=== PATIENT | male | born 1970 | race African-American/Black ===

== ENCOUNTER 2019-02-18 11:30 | Inpatient (IN) | payer MEDICAID, SELFPAY ==
[~2019-02-18] VITALS: Ht 182.9 cm; Wt 97.1 kg
[2019-02-18 12:59] LABS: BILIRUBIN,URINE NEGATIVE (NEG); CLARITY,URINE CLEAR; COLOR,URINE YELLOW; NITRITE,URINE NEGATIVE (NEG); PROTEIN,URINE NEGATIVE (NEG-TRACE); UROBILINOGEN,URINE 0.2 mg/dL (0.2 mg/dL)
[2019-02-18 13:09] LABS: BACTERIA,URINE FEW /HPF (0-FEW); RBC,URINE 0 /HPF (0-2); SQUAMOUS EPITHELIAL CELL,UR FEW /LPF
[2019-02-18] MEDS ORDERED: IPRATRPIUM/ALBUTEROL 0.5/2.5MG 3 ML NEBU. NEB ONE (13:15)
[2019-02-18] MEDS ORDERED: predniSONE 10 MG TABLET PO ONE (13:15)
[2019-02-18 13:34] LABS: BASO % 1 % (0-3); EOS # 0.1 x10^3/uL (0.0-0.7); EOS % 1 % (0-3); HEMATOCRIT 41.6 % (39.0-53.0); LYMPH # 2.5 x10^3/uL (1.0-4.8); LYMPH % 40 % (24-48); MEAN CORPUSCULAR HEMOGLOBIN 31 pg (25-35); MEAN CORPUSCULAR HGB CONC 34 g/dL (31-37); MEAN CORPUSCULAR VOLUME 94 fL (79-100); MONO # 0.6 x10^3/uL (0.0-1.1); MONO % 10 % (0-9); NEUT # 3.1 x10^3uL (1.8-7.7); NEUT % 49 % (31-73); PLATELET COUNT 265 x10^3/uL (140-400); RED BLOOD COUNT 4.45 x10^6/uL (4.30-5.70); WHITE BLOOD COUNT 6.4 x10^3/uL (4.0-11.0)
[2019-02-18 13:36] LABS: CALCIUM 9.4 mg/dL (8.5-10.1); CREATININE 1.1 mg/dL (0.7-1.3); GFR 87.2; POTASSIUM 3.8 mmol/L (3.5-5.1)
--- NOTE | 2019-02-18 13:40 | PHYS DOC ---
Past Medical History Past Medical History: Anxiety, Arthritis, Asthma, Sciatica Additional Past Medical Histor: pericarditis Past Surgical History: Other Additional Past Surgical Histo: hernia,Lt. thigh, lip, rt. rotator cuff torn Alcohol Use: Occasionally Drug Use: None Adult General Chief Complaint Chief Complaint: FLANK PAIN HPI HPI 48-year-old male presents to ER for complaints of left side pain which radiates into left ribs. Patient states symptoms have been ongoing for the past 3-4 days along with nonproductive cough. Patient reports he has history of asthma. Isabella ent denies any shortness of air, fever, or chest pain. Pt denies any urinary symptoms. Patient denies any recent illness. Patient reports he has had wheezing. Pt denies any recent travel. Patient reports he is a daily smoker. Review of Systems Review of Systems Constitutional: Denies fever or chills [] Eyes: Denies change in visual acuity, redness, or eye pain [] HENT: Denies nasal congestion or sore throat [] Respiratory: Denies shortness of breath. Reports nonprod. cough- reports lt side rib pain which radiates around to lt side anterior ribs just under breast Cardiovascular: No additional information not addressed in HPI [] GI: Denies abdominal pain, nausea, vomiting, bloody stools or diarrhea [] : Denies dysuria or hematuria [] Musculoskeletal: Denies back/neck pain or joint pain [] Integument: Denies rash or skin lesions [] Neurologic: Denies headache, focal weakness or sensory changes. Denies dizziness All other systems were reviewed and found to be within normal limits, except as documented in this note. Current Medications Current Medications Current Medications Medications (Trade) Dose Ordered Sig/Sergo Start Time Stop Time Status Last Admin Dose Admin Albuterol/ Ipratropium (Duoneb) 3 ml 1X ONCE 02/18/19 13:15 02/18/19 13:20 DC 02/18/19 13:43 3 ML Iohexol (Omnipaque 300 Mg/ml) 75 ml 1X ONCE 02/18/19 14:15 02/18/19 14:16 DC Prednisone (Prednisone) 50 mg 1X ONCE 02/18/19 13:15 02/18/19 13:20 DC 02/18/19 13:15 50 MG Sodium Chloride 1,000 ml @ 1,000 mls/hr 1X ONCE 02/18/19 14:00 02/18/19 14:59 DC 02/18/19 14:00 1,000 MLS/HR Allergies Allergies Allergies Coded Allergies Type Severity Reaction Last Updated Verified No Known Drug Allergies 10/17/14 No Physical Exam Physical Exam Constitutional: Well developed, well nourished, no acute distress, non-toxic appearance. [] HENT: Normocephalic, atraumatic, bilateral ears normal, oropharynx moist- bilat tonsillar swelling without erythema- pt denies sore throat, no oral exudates, nose normal. [] Eyes: Pupils equal, conjunctiva normal, no discharge. [] Neck: Normal range of motion, no tenderness, supple, no stridor. [] Cardiovascular: Heart rate regular rhythm, no murmur [] Lungs & Thorax: Bilateral expiratory wheeze in all lobes. Diminished air mov ement throughout bases. Respirations equal and nonlabored. Patient speaking in full sentences. Abdomen: Bowel sounds normal, soft, no tenderness, no masses, no pulsatile masses. [] Skin: Warm, dry, no erythema, no rash. [] Back: No tenderness, no CVA tenderness. [] Extremities: No tenderness, no cyanosis, no clubbing, ROM intact, no edema. [] Neurologic: Alert and oriented X 3, normal motor function, normal sensory function, no focal deficits noted. [] Psychologic: Affect normal, judgement normal, mood normal. [] Current Patient Data Vital Signs Vital Signs Date Time Temp Pulse Resp B/P (MAP) Pulse Ox O2 Delivery O2 Flow Rate FiO2 02/18/19 15:00 64 15 128/74 (92) 97 Room Air 02/18/19 12:03 97.9 97.9 Lab Values Laboratory Tests Test 02/18/19 12:47 02/18/19 12:57 Urine Collection Type Unknown Urine Color Yellow Urine Clarity Clear Urine pH 6.0 Urine Specific [place] 1.020 Urine Protein Negative mg/dL (NEG-TRACE) Urine Glucose (UA) Negative mg/dL (NEG) Urine Ketones (Stick) Negative mg/dL (NEG) Urine Blood Negative (NEG) Urine Nitrite Negative (NEG) Urine Bilirubin Negative (NEG) Urine Urobilinogen Dipstick 0.2 mg/dL (0.2 mg/dL) Urine Leukocyte Esterase Negative (NEG) Urine RBC 0 /HPF (0-2) Urine WBC 1-4 /HPF (0-4) Urine Squamous Epithelial Cells Few /LPF Urine Bacteria Few /HPF (0-FEW) Urine Mucus Mod /LPF White Blood Count 6.4 x10^3/uL (4.0-11.0) Red Blood Count 4.45 x10^6/uL (4.30-5.70) Hemoglobin 14.0 g/dL (13.0-17.5) Hematocrit 41.6 % (39.0-53.0) Mean Corpuscular Volume 94 fL (79-100) Mean Corpuscular Hemoglobin 31 pg (25-35) Mean Corpuscular Hemoglobin Concent 34 g/dL (31-37) Red Cell Distribution Width 15.0 % (11.5-14.5) H Platelet Count 265 x10^3/uL (140-400) Neutrophils (%) (Auto) 49 % (31-73) Lymphocytes (%) (Auto) 40 % (24-48) Monocytes (%) (Auto) 10 % (0-9) H Eosinophils (%) (Auto) 1 % (0-3) Basophils (%) (Auto) 1 % (0-3) Neutrophils # (Auto) 3.1 x10^3uL (1.8-7.7) Lymphocytes # (Auto) 2.5 x10^3/uL (1.0-4.8) Monocytes # (Auto) 0.6 x10^3/uL (0.0-1.1) Eosinophils # (Auto) 0.1 x10^3/uL (0.0-0.7) Basophils # (Auto) 0.0 x10^3/uL (0.0-0.2) Sodium Level 135 mmol/L (136-145) L Potassium Level 3.8 mmol/L (3.5-5.1) Chloride Level 98 mmol/L (98-107) Carbon Dioxide Level 29 mmol/L (21-32) Anion Gap 8 (6-14) Blood Urea Nitrogen 12 mg/dL (8-26) Creatinine 1.1 mg/dL (0.7-1.3) Estimated GFR (Cockcroft-Gault) 87.2 BUN/Creatinine Ratio 11 (6-20) Glucose Level 95 mg/dL (70-99) Calcium Level 9.4 mg/dL (8.5-10.1) Magnesium Level 2.0 mg/dL (1.8-2.4) Total Bilirubin 0.3 mg/dL (0.2-1.0) Aspartate Amino Transferase (AST) 22 U/L (15-37) Alanine Aminotransferase (ALT) 28 U/L (16-63) Alkaline Phosphatase 85 U/L (46-116) Troponin I Quantitative < 0.017 ng/mL (0.000-0.055) Total Protein 8.5 g/dL (6.4-8.2) H Albumin 4.0 g/dL (3.4-5.0) Albumin/Globulin Ratio 0.9 (1.0-1.7) L Laboratory Tests 02/18/19 12:57 Laboratory Tests 02/18/19 12:57 EKG EKG EKG obtained 02/18/19 at [address] Billy Sinus rhythm Nonspec. ST/T abnorm. Rate 67 No STEMI Radiology/Procedures Radiology/Procedures PROCEDURE: CHEST PA & LATERAL EXAM: PA and lateral views of the chest DATE: 02/18/2019 1:15 PM INDICATION: Left-sided rib pain COMPARISON: No Prior FINDINGS: The heart is not enlarged. Mediastinal and hilar contours are grossly unremarkable. There is a 3 x 2.4 cm lung mass in the right lung. Emphysematous changes are seen. No pleural effusion or pneumothorax. IMPRESSION: A 3 cm right lung mass is seen. Further evaluation with CT chest with IV contrast is recommended. The right lung mass was discussed with referring provider at 1:52 PM, 02/18/2019. Electronically signed by: Lyndon Bustillos MD (02/18/2019 1:54 PM) [id number] DICTATED and SIGNED BY: LYNDON BUSTILLOS MD DATE: 02/18/19 1354 PROCEDURE: CT CHEST W/CONTRAST EXAM: CT Chest with IV contrast CLINICAL HISTORY: Right upper lobe lung lesion on prior chest x-ray. COMPARISON: Radiograph 02/18/2019 TECHNIQUE: CT of the chest following the administration of intravenous contrast. Axial, coronal and sagittal reformatted images were generated. ---PQRS compliance statement - One or more of the following individualized dose reduction techniques were utilized for this study: 1. Automated exposure control 2. Adjustment of the mA and/or kV according to patient size 3. Use of iterative reconstruction technique--- FINDINGS: CHEST: Heart is not enlarged. No pericardial effusion. No pleural effusion or pneumothorax. A calcified pretracheal lymph node measures 2.5 x 1.9 cm, possibly from prior granulomatous disease. No thoracic lymphadenopathy by size criteria. A 2.4 x 2.4 x 3 cm spiculated right upper lobe lung mass is seen. A 1.2 cm medial right lower lobe lung nodule contains calcifications. Bilateral emphysematous changes are seen. No lobar consolidation. Visualized Upper abdomen: Left upper pole renal cystic lesion is seen. Visualized adrenal glands are unremarkable. Relative hepatic hypoattenuation likely hepatic steatosis. Bones: Visualized osseous structures are unremarkable. IMPRESSION: 1. Spiculated 3 cm right upper lobe lung mass is seen with suspicious features. Recommend further evaluation with PET/CT and biopsy was histopathologic correlation. 2. Calcified mediastinal lymph nodes are seen, likely from prior granulomatous disease. 3. Medial right lower lobe lung nodule measures 1.2 cm with associated calcifications, also likely from the prior granulomatous process. Electronically signed by: Lyndon Bustillos MD (02/18/2019 2:38 PM) [id number] DICTATED and SIGNED BY: LYNDON BUSTILLOS MD DATE: 02/18/19 143 Course & Med Decision Making Course & Med Decision Making Pertinent Labs and Imaging studies reviewed. (See chart for details) 1345: Radiologist call and discussed patient's chest x-ray with area of concern in right upper lobe recommended a kneeing CT chest for further evaluation to rule out possible mass. On reevaluation patient reports his breathing has improved following DuoNeb treatment. On reexam expiratory wheezing has subsided. Patient's respirations are equal and nonlabored. IV fluids were ordered and patient advised on plans to obtain CT. Test results were discussed with pt- labs unremarkable. EKG with no acute ST elevation/STEMI and troponin was neg. CT chest results with report of "Spiculated 3 cm right upper lobe lung mass is seen with suspicious features. Recommend further evaluation with PET/CT and biopsy was histopathologic correlation". This results was discussed with pt. Pt continues to c/o lt side rib pain. Pt reports he feels his sxs improved some h owever continues to have pain with deep breath. Discussed admission for further care/monitoring as pt has no PCP for f/u care- pt is agreeable with admit plan. Will admit to hospitalist services. 1532: Spoke with Dr. Miller, hospitalist and discussed pt's case and admit plan. Josue Disclaimer Josue Disclaimer This electronic medical record was generated, in whole or in part, using a voice recognition dictation system. Departure Departure Impression: Primary Impression: Mass of right lung Additional Impressions: Cough Chest pain Disposition: ADMITTED INPATIENT Admitting Physician: Adam Quispe Condition: STABLE Referrals: NO PCP (PCP) Scripts Albuterol Sulfate (PROAIR HFA INHALER) 8.5 Gm Hfa.aer.ad 1 PUFF INH PRN Q6HRS PRN for SHORTNESS OF BREATH for 30 Days, INHALER 0 Refills Prov: AP CORCORAN MD 02/19/19 Guaifenesin/Codeine Phosphate (Codeine-Guaifen 10-100 mg/5 ml) 120 Ml Liquid 120 ML PO QID for pleuritic cp coughing for 10 Days, LIQUID Prov: AP CORCORAN MD 02/19/19 [Nicotine 21MG] 1 PATCH PATCH No Conflict Check 1 PATCH TD PRN DAILY PRN for SMOKING CESSATION MDD 1, #10 Prov: AP CORCORAN MD 02/19/19 Problem Qualifiers 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
[2019-02-18 13:42] LABS: ALBUMIN/GLOBULIN RATIO 0.9 (1.0-1.7); TOTAL BILIRUBIN 0.3 mg/dL (0.2-1.0); TOTAL PROTEIN 8.5 g/dL (6.4-8.2)
--- NOTE | 2019-02-18 13:56 | RAD ---
EXAM: PA and lateral views of the chest DATE: 02/18/2019 1:15 PM INDICATION: Left-sided rib pain COMPARISON: No Prior FINDINGS: The heart is not enlarged. Mediastinal and hilar contours are grossly unremarkable. There is a 3 x 2.4 cm lung mass in the right lung. Emphysematous changes are seen. No pleural effusion or pneumothorax. IMPRESSION: A 3 cm right lung mass is seen. Further evaluation with CT chest with IV contrast is recommended. The right lung mass was discussed with referring provider at 1:52 PM, 02/18/2019. Electronically signed by: Lyndon Mcarthur MD (02/18/2019 1:54 PM) [id number]
[2019-02-18] MEDS ORDERED: IV NORMAL SALINE 1000ML BAG 1,000 ML IV ONE (14:00)
[2019-02-18] MEDS ORDERED: IOHEXOL 300 MG/ML 100ML VIAL. IV ONE (14:15)
--- NOTE | 2019-02-18 14:41 | RAD ---
EXAM: CT Chest with IV contrast CLINICAL HISTORY: Right upper lobe lung lesion on prior chest x-ray. COMPARISON: Radiograph 02/18/2019 TECHNIQUE: CT of the chest following the administration of intravenous contrast. Axial, coronal and sagittal reformatted images were generated. ---PQRS compliance statement - One or more of the following individualized dose reduction techniques were utilized for this study: 1. Automated exposure control 2. Adjustment of the mA and/or kV according to patient size 3. Use of iterative reconstruction technique--- FINDINGS: CHEST: Heart is not enlarged. No pericardial effusion. No pleural effusion or pneumothorax. A calcified pretracheal lymph node measures 2.5 x 1.9 cm, possibly from prior granulomatous disease. No thoracic lymphadenopathy by size criteria. A 2.4 x 2.4 x 3 cm spiculated right upper lobe lung mass is seen. A 1.2 cm medial right lower lobe lung nodule contains calcifications. Bilateral emphysematous changes are seen. No lobar consolidation. Visualized Upper abdomen: Left upper pole renal cystic lesion is seen. Visualized adrenal glands are unremarkable. Relative hepatic hypoattenuation likely hepatic steatosis. Bones: Visualized osseous structures are unremarkable. IMPRESSION: 1. Spiculated 3 cm right upper lobe lung mass is seen with suspicious features. Recommend further evaluation with PET/CT and biopsy was histopathologic correlation. 2. Calcified mediastinal lymph nodes are seen, likely from prior granulomatous disease. 3. Medial right lower lobe lung nodule measures 1.2 cm with associated calcifications, also likely from the prior granulomatous process. Electronically signed by: Lyndon Mcarthur MD (02/18/2019 2:38 PM) [id number]
--- NOTE | 2019-02-18 14:59 | EKG ---
[facility] [address] [place] [address] Test Date: 2019-02-18 Test Time: 13:53:41 Pat Name: YASMIN WONG Department: Room: Gender: M [employer]: : 1970 Requested By: RIVER GRACIA Order Number: [id number] Reading MD: Deejay Mart MD Measurements Intervals [place] Rate: 67 P: 50 MD: 172 QRS: 45 QRSD: 88 T: 47 QT: 356 QTc: 378 Interpretive Statements SINUS RHYTHM NON SPECIFIC ST-T ABNORMALITY (ELEVATION) Electronically Signed On 03-17-2019 9:23:30 CDT by Deejay Mart MD
--- NOTE | 2019-02-18 15:36 | PDOC1 ---
History and Physical Date of Admission Date of Admission DATE: 02/18/19 TIME: 15:36 Identification/Chief Complaint Chief Complaint seen in er ,48-year-old male presents to ER for complaints of left side pain which radiates into left ribs. Patient states symptoms have been ongoing for the past 3-4 days along with nonproductive cough. Patient reports he has history of asthma. Patient has mild shortness of air, fever, or chest pain. Pt denies any urinary symptoms. Patient denies any recent illness. Patient reports he has had wheezing. Past Medical History Past Medical History Past Medical History Past Medical History: Anxiety, Arthritis, Asthma, Sciatica Additional Past Medical Histor: pericarditis Past Surgical History: Other Additional Past Surgical Histo: hernia,Lt. thigh, lip, rt. 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 Family History Family History: High Cholestrol, Hypertension Social History Smoke: <1 pack per day ALCOHOL: occassional Drugs: None Current Medications Current Medications Current Medications Prednisone (Prednisone) 50 mg 1X ONCE PO Last administered on 02/18/19at 13:15; Start 02/18/19 at 13:15; Stop 02/18/19 at 13:20; Status DC Albuterol/ Ipratropium (Duoneb) 3 ml 1X ONCE NEB Last administered on 02/18/19at 13:43; Start 02/18/19 at 13:15; Stop 02/18/19 at 13:20; Status DC Sodium Chloride 1,000 ml @ 1,000 mls/hr 1X ONCE IV Last administered on 02/18/19at 14:00; Start 02/18/19 at 14:00; Stop 02/18/19 at 14:59; Status DC Iohexol (Omnipaque 300 Mg/ml) 75 ml 1X ONCE IV ; Start 02/18/19 at 14:15; Stop 02/18/19 at 14:16; Status DC Allergies Allergies: Coded Allergies: No Known Drug Allergies (Unverified , 10/17/14) ROS Review of System Review of Systems Review of Systems Constitutional: Denies fever or chills [] Eyes: Denies change in visual acuity, redness, or eye pain [] HENT: Denies nasal congestion or sore throat [] Respiratory: Denies shortness of breath. Reports nonprod. cough- reports lt side rib pain which radiates around to lt side anterior ribs just under breast Cardiovascular: No additional information not addressed in HPI [] GI: Denies abdominal pain, nausea, vomiting, bloody stools or diarrhea [] : Denies dysuria or hematuria [] Musculoskeletal: Denies back/neck pain or joint pain [] Integument: Denies rash or skin lesions [] Neurologic: Denies headache, focal weakness or sensory changes. Denies dizziness 14 pt systems were reviewed and found to be within normal limits, except as documented Physical Exam Physical Exam Physical Exam Physical Exam Constitutional: Well developed, well nourished, no acute distress, non-toxic appearance. [] HENT: Normocephalic, atraumatic, bilateral ears normal, oropharynx moist- bilat tonsillar swelling without erythema- pt denies sore throat, no oral exudates, nose normal. [] Eyes: Pupils equal, conjunctiva normal, no discharge. [] Neck: Normal range of motion, no tenderness, supple, no stridor. [] Cardiovascular: Heart rate regular rhythm, no murmur [] Lungs & Thorax: Bilateral expiratory wheeze in all lobes. Diminished air movement throughout bases. Respirations equal and nonlabored. Patient speaking in full sentences. Abdomen: Bowel sounds normal, soft, no tenderness, no masses, no pulsatile masses. [] Skin: Warm, dry, no erythema, no rash. [] Back: No tenderness, no CVA tenderness. [] Extremities: No tenderness, no cyanosis, no clubbing, ROM intact, no edema. [] Neurologic: Alert and oriented X 3, normal motor function, normal sensory function, no focal deficits noted. [] Psychologic: Affect normal, judgement normal, mood normal. [] General: Alert, Oriented X3, Cooperative, mild distress Heart: RRR Abdomen: Normal bowel sounds, Soft Extremities: No cyanosis Neuro: Normal speech, Sensation intact, Cranial nerves 3-12 NL Psych/Mental Status: Mental status NL, Mood NL Vitals Vitals Vital Signs Date Time Temp Pulse Resp B/P (MAP) Pulse Ox O2 Delivery O2 Flow Rate FiO2 02/18/19 13:43 Room Air 02/18/19 12:03 97.9 73 20 120/75 (90) 96 97.9 Labs Labs Laboratory Tests Test 02/18/19 12:47 02/18/19 12:57 Urine Collection Type Unknown Urine Color Yellow Urine Clarity Clear Urine pH 6.0 Urine Specific [place] 1.020 Urine Protein Negative mg/dL (NEG-TRACE) Urine Glucose (UA) Negative mg/dL (NEG) Urine Ketones (Stick) Negative mg/dL (NEG) Urine Blood Negative (NEG) Urine Nitrite Negative (NEG) Urine Bilirubin Negative (NEG) Urine Urobilinogen Dipstick 0.2 mg/dL (0.2 mg/dL) Urine Leukocyte Esterase Negative (NEG) Urine RBC 0 /HPF (0-2) Urine WBC 1-4 /HPF (0-4) Urine Squamous Epithelial Cells Few /LPF Urine Bacteria Few /HPF (0-FEW) Urine Mucus Mod /LPF White Blood Count 6.4 x10^3/uL (4.0-11.0) Red Blood Count 4.45 x10^6/uL (4.30-5.70) Hemoglobin 14.0 g/dL (13.0-17.5) Hematocrit 41.6 % (39.0-53.0) Mean Corpuscular Volume 94 fL (79-100) Mean Corpuscular Hemoglobin 31 pg (25-35) Mean Corpuscular Hemoglobin Concent 34 g/dL (31-37) Red Cell Distribution Width 15.0 % (11.5-14.5) Platelet Count 265 x10^3/uL (140-400) Neutrophils (%) (Auto) 49 % (31-73) Lymphocytes (%) (Auto) 40 % (24-48) Monocytes (%) (Auto) 10 % (0-9) Eosinophils (%) (Auto) 1 % (0-3) Basophils (%) (Auto) 1 % (0-3) Neutrophils # (Auto) 3.1 x10^3uL (1.8-7.7) Lymphocytes # (Auto) 2.5 x10^3/uL (1.0-4.8) Monocytes # (Auto) 0.6 x10^3/uL (0.0-1.1) Eosinophils # (Auto) 0.1 x10^3/uL (0.0-0.7) Basophils # (Auto) 0.0 x10^3/uL (0.0-0.2) Sodium Level 135 mmol/L (136-145) Potassium Level 3.8 mmol/L (3.5-5.1) Chloride Level 98 mmol/L (98-107) Carbon Dioxide Level 29 mmol/L (21-32) Anion Gap 8 (6-14) Blood Urea Nitrogen 12 mg/dL (8-26) Creatinine 1.1 mg/dL (0.7-1.3) Estimated GFR (Cockcroft-Gault) 87.2 BUN/Creatinine Ratio 11 (6-20) Glucose Level 95 mg/dL (70-99) Calcium Level 9.4 mg/dL (8.5-10.1) Magnesium Level 2.0 mg/dL (1.8-2.4) Total Bilirubin 0.3 mg/dL (0.2-1.0) Aspartate Amino Transf (AST/SGOT) 22 U/L (15-37) Alanine Aminotransferase (ALT/SGPT) 28 U/L (16-63) Alkaline Phosphatase 85 U/L (46-116) Troponin I Quantitative < 0.017 ng/mL (0.000-0.055) Total Protein 8.5 g/dL (6.4-8.2) Albumin 4.0 g/dL (3.4-5.0) Albumin/Globulin Ratio 0.9 (1.0-1.7) Laboratory Tests Test 02/18/19 12:47 02/18/19 12:57 Urine Collection Type Unknown Urine Color Yellow Urine Clarity Clear Urine pH 6.0 Urine Specific [place] 1.020 Urine Protein Negative mg/dL (NEG-TRACE) Urine Glucose (UA) Negative mg/dL (NEG) Urine Ketones (Stick) Negative mg/dL (NEG) Urine Blood Negative (NEG) Urine Nitrite Negative (NEG) Urine Bilirubin Negative (NEG) Urine Urobilinogen Dipstick 0.2 mg/dL (0.2 mg/dL) Urine Leukocyte Esterase Negative (NEG) Urine RBC 0 /HPF (0-2) Urine WBC 1-4 /HPF (0-4) Urine Squamous Epithelial Cells Few /LPF Urine Bacteria Few /HPF (0-FEW) Urine Mucus Mod /LPF White Blood Count 6.4 x10^3/uL (4.0-11.0) Red Blood Count 4.45 x10^6/uL (4.30-5.70) Hemoglobin 14.0 g/dL (13.0-17.5) Hematocrit 41.6 % (39.0-53.0) Mean Corpuscular Volume 94 fL (79-100) Mean Corpuscular Hemoglobin 31 pg (25-35) Mean Corpuscular Hemoglobin Concent 34 g/dL (31-37) Red Cell Distribution Width 15.0 % (11.5-14.5) Platelet Count 265 x10^3/uL (140-400) Neutrophils (%) (Auto) 49 % (31-73) Lymphocytes (%) (Auto) 40 % (24-48) Monocytes (%) (Auto) 10 % (0-9) Eosinophils (%) (Auto) 1 % (0-3) Basophils (%) (Auto) 1 % (0-3) Neutrophils # (Auto) 3.1 x10^3uL (1.8-7.7) Lymphocytes # (Auto) 2.5 x10^3/uL (1.0-4.8) Monocytes # (Auto) 0.6 x10^3/uL (0.0-1.1) Eosinophils # (Auto) 0.1 x10^3/uL (0.0-0.7) Basophils # (Auto) 0.0 x10^3/uL (0.0-0.2) Sodium Level 135 mmol/L (136-145) Potassium Level 3.8 mmol/L (3.5-5.1) Chloride Level 98 mmol/L (98-107) Carbon Dioxide Level 29 mmol/L (21-32) Anion Gap 8 (6-14) Blood Urea Nitrogen 12 mg/dL (8-26) Creatinine 1.1 mg/dL (0.7-1.3) Estimated GFR (Cockcroft-Gault) 87.2 BUN/Creatinine Ratio 11 (6-20) Glucose Level 95 mg/dL (70-99) Calcium Level 9.4 mg/dL (8.5-10.1) Magnesium Level 2.0 mg/dL (1.8-2.4) Total Bilirubin 0.3 mg/dL (0.2-1.0) Aspartate Amino Transf (AST/SGOT) 22 U/L (15-37) Alanine Aminotransferase (ALT/SGPT) 28 U/L (16-63) Alkaline Phosphatase 85 U/L (46-116) Troponin I Quantitative < 0.017 ng/mL (0.000-0.055) Total Protein 8.5 g/dL (6.4-8.2) Albumin 4.0 g/dL (3.4-5.0) Albumin/Globulin Ratio 0.9 (1.0-1.7) Images Images STATUS: REG ER ORD. PHYSICIAN: RIVER GRACIA APRN REASON: COUGH- RT UPPER LOBE LESION ON CHEST XRAY PROCEDURE: CT CHEST W/CONTRAST EXAM: CT Chest with IV contrast CLINICAL HISTORY: Right upper lobe lung lesion on prior chest x-ray. COMPARISON: Radiograph 02/18/2019 TECHNIQUE: CT of the chest following the administration of intravenous contrast. Axial, coronal and sagittal reformatted images were generated. ---PQRS compliance statement - One or more of the following individualized dose reduction techniques were utilized for this study: 1. Automated exposure control 2. Adjustment of the mA and/or kV according to patient size 3. Use of iterative reconstruction technique--- FINDINGS: CHEST: Heart is not enlarged. No pericardial effusion. No pleural effusion or pneumothorax. A calcified pretracheal lymph node measures 2.5 x 1.9 cm, possibly from prior granulomatous disease. No thoracic lymphadenopathy by size criteria. A 2.4 x 2.4 x 3 cm spiculated right upper lobe lung mass is seen. A 1.2 cm medial right lower lobe lung nodule contains calcifications. Bilateral emphysematous changes are seen. No lobar consolidation. Visualized Upper abdomen: Left upper pole renal cystic lesion is seen. Visualized adrenal glands are unremarkable. Relative hepatic hypoattenuation likely hepatic steatosis. Bones: Visualized osseous structures are unremarkable. IMPRESSION: 1. Spiculated 3 cm right upper lobe lung mass is seen with suspicious features. Recommend further evaluation with PET/CT and biopsy was histopathologic correlation. 2. Calcified mediastinal lymph nodes are seen, likely from prior granulomatous disease. 3. Medial right lower lobe lung nodule measures 1.2 cm with associated calcifications, also likely from the prior granulomatous process. Electronically signed by: Lyndon Mcarthur MD (02/18/2019 2:38 PM) [id number] DICTATED and SIGNED BY: LYNDON MCARTHUR MD DATE: 02/18/19 1438 VTE Prophylaxis Ordered VTE Prophylaxis Devices: Yes VTE Pharmacological Prophylaxi: Yes Assessment/Plan Assessment/Plan IMPRESSION: 1. Spiculated 3 cm right upper lobe lung mass is seen with suspicious features. Recommend further evaluation with PET/CT and biopsy was histopathologic correlation. 2. Calcified mediastinal lymph nodes are seen, likely from prior granulomatous disease. 3. Medial right lower lobe lung nodule measures 1.2 cm with associated calcifications, also likely from the prior granulomatous process. 4. LEFT lower chest pain with cough plan pulm consult tele serial troponin i admit home meds 73 min pt exam, chart review, > 50% of time spent with exam, chart review, pt care coordination RUDDY DOWNING MD February 18, 2019 15:36
[2019-02-18] MEDS ORDERED: LIDOCAINE (700MG/PATCH) PATCH. TD ONE (16:15)
[2019-02-18 18:00] VITALS: BP 134/75
--- NOTE | 2019-02-18 18:00 | NUR ---
Pt admitted to room 664 from ED. Received report from JOHN Clemente. Pt transported via wheelchair. All belongings left with patient at time of transfer.
[2019-02-18] MEDS ORDERED: ALBU2.5V5 NEB (18:42)
[2019-02-18 19:44] VITALS: BP 132/70
[2019-02-18] MEDS: IPRATRPIUM/ALBUTEROL 0.5/2.5MG 3 ML NEBU. NEB SCH (19:53)
[2019-02-18] MEDS: HYDROmorphone 2 MG/ML VIAL IV PRN (22:08)
[2019-02-18 23:27] VITALS: BP 130/79
[2019-02-19] MEDS: HYDROmorphone 2 MG/ML VIAL IV PRN ×2 (03:30→12:44)
[2019-02-19 03:39] VITALS: BP 123/69
[2019-02-19 03:53] LABS: BASO % 0 % (0-3); EOS % 1 % (0-3); HEMATOCRIT 38.1 % (39.0-53.0); HEMOGLOBIN 12.7 g/dL (13.0-17.5); LYMPH # 1.8 x10^3/uL (1.0-4.8); LYMPH % 22 % (24-48); MEAN CORPUSCULAR HEMOGLOBIN 31 pg (25-35); MEAN CORPUSCULAR HGB CONC 33 g/dL (31-37); MEAN CORPUSCULAR VOLUME 93 fL (79-100); MONO # 0.8 x10^3/uL (0.0-1.1); MONO % 10 % (0-9); NEUT # 5.6 x10^3uL (1.8-7.7); NEUT % 68 % (31-73); PLATELET COUNT 245 x10^3/uL (140-400); RED BLOOD COUNT 4.08 x10^6/uL (4.30-5.70); RED CELL DISTRIBUTION WIDTH 14.8 % (11.5-14.5); WHITE BLOOD COUNT 8.2 x10^3/uL (4.0-11.0)
[2019-02-19 04:10] LABS: CALCIUM 8.7 mg/dL (8.5-10.1); CREATININE 1.3 mg/dL (0.7-1.3); GFR 71.9; POTASSIUM 3.8 mmol/L (3.5-5.1)
[2019-02-19 07:00] VITALS: BP 125/67
[2019-02-19] MEDS: IPRATRPIUM/ALBUTEROL 0.5/2.5MG 3 ML NEBU. NEB SCH ×3 (07:57→15:26)
[2019-02-19] MEDS ORDERED: NICOTINE POLACRILEX 2MG GUM PACKAGE of 12. BC PRN (09:30)
[2019-02-19] MEDS ORDERED: NICOTINE 21MG PATCH. TD PRN (09:30)
[2019-02-19] MEDS ORDERED: HYDROcodone/APAP 10/325 1 TAB TABLET PO PRN (09:30)
--- NOTE | 2019-02-19 10:28 | PDOC2 ---
YIMI HANLEY GROCERY CLERK SELLING 02/19/19 1028: CARDIAC CONSULT DATE OF CONSULT Date of Consult DATE: 02/19/19 TIME: 10:26 REASON FOR CONSULT Reason for Consult: Atypical chest pain REFERRING PHYSICIAN Referring Physician: Dr. Miller SOURCE Source: Chart review, Patient HISTORY OF PRESENT ILLNESS HISTORY OF PRESENT ILLNESS This is a 48 yo male who presented secondary to left side pain. Located under left rib cage. Describes as aching. Worse with certain movements and with coughing. No associated dizziness, SOA, palpitations, or nausea/vomiting. History of tobaccoism. Patient reports persistent coughing for the last week. Cough occasionally productive of yellow sputum. Does report some mild ORTIZ for some time. CXR notable for right lung mass. CT chest confirms 3cm right upper lobe lung mass. IR consulted for biopsy today. PAST MEDICAL HISTORY Cardiovascular: Hyperlipidemia Pulmonary: Asthma CENTRAL NERVOUS SYSTEM: Other (no pertinent hx) GI: No pertinent hx Heme/Onc: Anemia NOS Hepatobiliary: No pertinent hx Psych: Anxiety Musculoskeletal: Osteoarthritis Rheumatologic: No pertinent hx Infectious disease: No pertinent hx ENT: No pertinent hx Renal/: No pertinent hx Endocrine: No pertinent hx Dermatology: No pertinent hx PAST SURGICAL HISTORY Past Surgical History: Hernia Repair FAMILY HISTORY Family History: Hypertension SOCIAL HISTORY Smoke: <1 pack per day ALCOHOL: occassional Drugs: None Lives: Alone CURRENT MEDICATIONS CURRENT MEDICATIONS Current Medications Medications (Trade) Dose Ordered Sig/Sergo Route PRN Reason Start Time Stop Time Status Last Admin Dose Admin Prednisone (Prednisone) 50 mg 1X ONCE PO 02/18/19 13:15 02/18/19 13:20 DC 02/18/19 13:15 Albuterol/ Ipratropium (Duoneb) 3 ml 1X ONCE NEB 02/18/19 13:15 02/18/19 13:20 DC 02/18/19 13:43 Sodium Chloride 1,000 ml @ 1,000 mls/hr 1X ONCE IV 02/18/19 14:00 02/18/19 14:59 DC 02/18/19 14:00 Lidocaine (Lidoderm) 1 patch 1X ONCE TD 02/18/19 16:15 02/18/19 16:16 DC 02/18/19 16:15 Albuterol/ Ipratropium (Duoneb) 3 ml RTQID NEB 02/18/19 20:00 02/19/19 19:59 02/19/19 07:57 Hydromorphone HCl (Dilaudid) 1 mg PRN Q4HRS PRN IV PAIN 02/18/19 22:00 02/19/19 03:30 ALLERGIES ALLERGIES: Coded Allergies: No Known Drug Allergies (Unverified , 10/17/14) ROS Review of System 14 point ROS conducted with pertinent positives noted above in HPI. PHYSICAL EXAM General: Alert, Oriented X3, Cooperative, No acute distress HEENT: Atraumatic, Mucous membr. moist/pink Lungs: Normal air movement, Other (fine expiratory wheezes) Heart: Regular rate, Normal S1, Normal S2, No murmurs Abdomen: Soft, No tenderness Extremities: No edema, Normal pulses Skin: No breakdown, No significant lesion Neuro: Normal speech, Sensation intact Psych/Mental Status: Mental status NL, Mood NL MUSCULOSKELETAL: No swelling VITALS VITALS Vital Signs Date Time Temp Pulse Resp B/P (MAP) Pulse Ox O2 Delivery O2 Flow Rate FiO2 02/19/19 08:00 Room Air 02/19/19 07:59 97 02/19/19 07:00 98.1 74 18 125/67 (86) 98.1 LABS Lab: Laboratory Tests Test 02/18/19 12:47 02/18/19 12:57 02/19/19 03:30 02/19/19 03:35 Urine Collection Type Unknown Urine Color Yellow Urine Clarity Clear Urine pH 6.0 Urine Specific [place] 1.020 Urine Protein Negative mg/dL (NEG-TRACE) Urine Glucose (UA) Negative mg/dL (NEG) Urine Ketones (Stick) Negative mg/dL (NEG) Urine Blood Negative (NEG) Urine Nitrite Negative (NEG) Urine Bilirubin Negative (NEG) Urine Urobilinogen Dipstick 0.2 mg/dL (0.2 mg/dL) Urine Leukocyte Esterase Negative (NEG) Urine RBC 0 /HPF (0-2) Urine WBC 1-4 /HPF (0-4) Urine Squamous Epithelial Cells Few /LPF Urine Bacteria Few /HPF (0-FEW) Urine Mucus Mod /LPF White Blood Count 6.4 x10^3/uL (4.0-11.0) 8.2 x10^3/uL (4.0-11.0) Red Blood Count 4.45 x10^6/uL (4.30-5.70) 4.08 x10^6/uL (4.30-5.70) Hemoglobin 14.0 g/dL (13.0-17.5) 12.7 g/dL (13.0-17.5) Hematocrit 41.6 % (39.0-53.0) 38.1 % (39.0-53.0) Mean Corpuscular Volume 94 fL (79-100) 93 fL (79-100) Mean Corpuscular Hemoglobin 31 pg (25-35) 31 pg (25-35) Mean Corpuscular Hemoglobin Concent 34 g/dL (31-37) 33 g/dL (31-37) Red Cell Distribution Width 15.0 % (11.5-14.5) 14.8 % (11.5-14.5) Platelet Count 265 x10^3/uL (140-400) 245 x10^3/uL (140-400) Neutrophils (%) (Auto) 49 % (31-73) 68 % (31-73) Lymphocytes (%) (Auto) 40 % (24-48) 22 % (24-48) Monocytes (%) (Auto) 10 % (0-9) 10 % (0-9) Eosinophils (%) (Auto) 1 % (0-3) 1 % (0-3) Basophils (%) (Auto) 1 % (0-3) 0 % (0-3) Neutrophils # (Auto) 3.1 x10^3uL (1.8-7.7) 5.6 x10^3uL (1.8-7.7) Lymphocytes # (Auto) 2.5 x10^3/uL (1.0-4.8) 1.8 x10^3/uL (1.0-4.8) Monocytes # (Auto) 0.6 x10^3/uL (0.0-1.1) 0.8 x10^3/uL (0.0-1.1) Eosinophils # (Auto) 0.1 x10^3/uL (0.0-0.7) 0.0 x10^3/uL (0.0-0.7) Basophils # (Auto) 0.0 x10^3/uL (0.0-0.2) 0.0 x10^3/uL (0.0-0.2) Sodium Level 135 mmol/L (136-145) 135 mmol/L (136-145) Potassium Level 3.8 mmol/L (3.5-5.1) 3.8 mmol/L (3.5-5.1) Chloride Level 98 mmol/L (98-107) 98 mmol/L (98-107) Carbon Dioxide Level 29 mmol/L (21-32) 26 mmol/L (21-32) Anion Gap 8 (6-14) 11 (6-14) Blood Urea Nitrogen 12 mg/dL (8-26) 17 mg/dL (8-26) Creatinine 1.1 mg/dL (0.7-1.3) 1.3 mg/dL (0.7-1.3) Estimated GFR (Cockcroft-Gault) 87.2 71.9 BUN/Creatinine Ratio 11 (6-20) Glucose Level 95 mg/dL (70-99) 114 mg/dL (70-99) Calcium Level 9.4 mg/dL (8.5-10.1) 8.7 mg/dL (8.5-10.1) Magnesium Level 2.0 mg/dL (1.8-2.4) Total Bilirubin 0.3 mg/dL (0.2-1.0) Aspartate Amino Transf (AST/SGOT) 22 U/L (15-37) Alanine Aminotransferase (ALT/SGPT) 28 U/L (16-63) Alkaline Phosphatase 85 U/L (46-116) Troponin I Quantitative < 0.017 ng/mL (0.000-0.055) < 0.017 ng/mL (0.000-0.055) Total Protein 8.5 g/dL (6.4-8.2) Albumin 4.0 g/dL (3.4-5.0) Albumin/Globulin Ratio 0.9 (1.0-1.7) ASSESSMENT/PLAN ASSESSMENT/PLAN 1. Chest pain, atypical. AMI ruled out. Most probably MSK in origin 2. Abnormal Chest CT; 3cm RUL mass. IR to biopsy today. 3. Hyperlipidemia; not compliant with statin 4. Tobaccoism Recommendations Echo to assess LV systolic function Lipid panel- statin if indicated Discussed/encouraged smoking cessation Consider outpatient ischemic evaluation Follow pulmonary recs TERRENCE WELLS MD 02/19/19 1710: CARDIAC CONSULT ASSESSMENT/PLAN ASSESSMENT/PLAN Patient seen and examined. Agree with above nurse practitioner note. 48-year-old male presenting with noncardiac chest pain. Echocardiogram within normal limits. Cardiac enzymes negative. Supportive care for now. Continue treatment of his pulmonary issues and lung mass. Outpatient follow-up for cardiac risk stratification. Thank you for this consultation. Please call with questions. YIMI HANLEY APRN February 19, 2019 10:28 TERRENCE WELLS MD February 19, 2019 17:10
[2019-02-19 11:00] VITALS: BP 126/75
[2019-02-19 11:00] LABS: CHOLESTEROL/HDL RATIO 5.8
--- NOTE | 2019-02-19 11:19 | NUR ---
SW following pt for anticipated dc needs. Chart reviewed. Pt lives at home alone and is self pay. No dc recommendation noted at this time.
--- NOTE | 2019-02-19 11:44 | CARD ---
MR#: [id number] Date of Study: 02/19/2019 Ordering Physician: RUDDY DOWNING, Referring Physician: RUDDY DOWNING, Tech: Re Mendoza APPROVED REPORT EXAM: Two-dimensional and M-mode echocardiogram with Doppler and color Doppler. Other Information Quality : GoodHR: 69bpm INDICATION Chest Pain RISK FACTORS Hyperlipidemia Smoking Asthma 2D DIMENSIONS RVDd2.9 (2.9-3.5cm)Left Atrium(2D)3.2 (1.6-4.0cm) IVSd1.2 (0.7-1.1cm)Aortic Root(2D)3.0 (2.0-3.7cm) LVDd4.8 (3.9-5.9cm)LVOT Diameter2.1 (1.8-2.4cm) PWd0.9 (0.7-1.1cm)LVDs2.7 (2.5-4.0cm) FS (%) 42.9 %SV79.0 ml LVEF(%)73.9 (>50%) Aortic Valve AoV Peak Kareem.149.4cm/sAoV VTI25.2cm AO Peak GR.8.9mmHgLVOT Peak Kareem.135.1cm/s LVOT VTI 24.98cmAO Mean GR.4mmHg LAURI (VMAX)2.70cz3IKC (VTI)3.28cm2 Mitral Valve MV E Zsrrncmg28.0cm/sMV DECEL [id number] MV A Tmdjjvib59.7cm/sMV RLQ70wj E/A Ratio1.4MVA (PHT)3.10cm2 TDI E/Lateral E'5.7E/Medial E'7.6 Pulmonary Valve PV Peak Cxcesmdv138.9cm/sPV Peak Grad.6mmHg Tricuspid Valve TR P. Ikzfnomv554qg/sRAP [id number] TR Peak Gr.55vxVfJYWF14xpTy Pulmonary Vein S1 Xzbtjdfb41.7cm/sD2 Xyecsxsd44.5cm/s PVa [id number] LEFT VENTRICLE The left ventricle is normal size. There is normal left ventricular wall thickness. The left ventricu lar systolic function is normal. The Ejection Fraction is 65%. There is normal LV segmental wall vamsi on. The left ventricular diastolic function and filling is normal for age. RIGHT VENTRICLE The right ventricle is mildly dilated. There is normal right ventricular wall thickness. The right ve ntricular systolic function is normal. ATRIA The left atrium size is normal. The right atrium is mildly dilated. The interatrial septum is intact with no evidence for an atrial septal defect or patent foramen ovale as noted on 2-D or Doppler imagi ng. AORTIC VALVE The aortic valve is normal in structure and function. Doppler and Color Flow revealed no significant aortic regurgitation. There is no significant aortic valvular stenosis. MITRAL VALVE The mitral valve is thickened but opens well. There is no evidence of mitral valve prolapse. There is no mitral valve stenosis. Doppler and Color-flow revealed trace mitral regurgitation. TRICUSPID VALVE The tricuspid valve is normal in structure and function. Doppler and Color Flow revealed trace to mil d tricuspid regurgitation with an estimated PAP of 31 mmHg. There is no tricuspid valve stenosis. PULMONIC VALVE The pulmonic valve is not well visualized. Doppler and Color Flow revealed trace pulmonic valvular re gurgitation. GREAT VESSELS The aortic root is normal in size. The IVC is normal in size and collapses >50% with inspiration. PERICARDIAL EFFUSION There is no evidence of significant pericardial effusion. Critical Notification Critical Value: No <Conclusion> The left ventricular systolic function is normal. The Ejection Fraction is 65%. There is normal LV segmental wall motion. Trace mitral regurgitation. Trace to mild tricuspid regurgitation with an estimated PAP of 31 mmHg. There is no evidence of significant pericardial effusion. Signed by : Anurag Caldwell, Electronically Approved : 02/19/2019 11:44:20
[2019-02-19] MEDS ORDERED: Nicotine 21MG TD (12:15)
[2019-02-19] MEDS ORDERED: guaiFENesin/CODEINE 100mg/10mg 5 ML LIQUID PO PRN (12:15)
[2019-02-19] MEDS ORDERED: GUAI120L35 PO (12:15)
[2019-02-19] MEDS ORDERED: ALBU2.5V8 INH (12:16)
--- NOTE | 2019-02-19 12:19 | PDOC3 ---
Discharge Summary Visit Information Date of Admission: February 18, 2019 Date of Discharge: February 19, 2019 Admitting Diagnosis Comment: NEw Right-sided lung mass 3 cm in greatest diameter Smoker-1 tobacco a day Bright red blood per rectum, at home, likely diverticulosis-no acute events- hemoglobin stable Brief Hospital Course Allergies Allergies Coded Allergies Type Severity Reaction Last Updated Verified No Known Drug Allergies 10/17/14 No Vital Signs Vital Signs Date Time Temp Pulse Resp B/P (MAP) Pulse Ox O2 Delivery O2 Flow Rate FiO2 02/19/19 11:44 Room Air 02/19/19 11:00 98.3 67 14 126/75 (92) 96 98.3 Lab Results Laboratory Tests Test 02/18/19 12:47 02/18/19 12:57 02/19/19 03:30 02/19/19 03:35 Urine Collection Type Unknown Urine Color Yellow Urine Clarity Clear Urine pH 6.0 Urine Specific [place] 1.020 Urine Protein Negative mg/dL (NEG-TRACE) Urine Glucose (UA) Negative mg/dL (NEG) Urine Ketones (Stick) Negative mg/dL (NEG) Urine Blood Negative (NEG) Urine Nitrite Negative (NEG) Urine Bilirubin Negative (NEG) Urine Urobilinogen Dipstick 0.2 mg/dL (0.2 mg/dL) Urine Leukocyte Esterase Negative (NEG) Urine RBC 0 /HPF (0-2) Urine WBC 1-4 /HPF (0-4) Urine Squamous Epithelial Cells Few /LPF Urine Bacteria Few /HPF (0-FEW) Urine Mucus Mod /LPF White Blood Count 6.4 x10^3/uL (4.0-11.0) 8.2 x10^3/uL (4.0-11.0) Red Blood Count 4.45 x10^6/uL (4.30-5.70) 4.08 x10^6/uL (4.30-5.70) Hemoglobin 14.0 g/dL (13.0-17.5) 12.7 g/dL (13.0-17.5) Hematocrit 41.6 % (39.0-53.0) 38.1 % (39.0-53.0) Mean Corpuscular Volume 94 fL (79-100) 93 fL (79-100) Mean Corpuscular Hemoglobin 31 pg (25-35) 31 pg (25-35) Mean Corpuscular Hemoglobin Concent 34 g/dL (31-37) 33 g/dL (31-37) Red Cell Distribution Width 15.0 % (11.5-14.5) 14.8 % (11.5-14.5) Platelet Count 265 x10^3/uL (140-400) 245 x10^3/uL (140-400) Neutrophils (%) (Auto) 49 % (31-73) 68 % (31-73) Lymphocytes (%) (Auto) 40 % (24-48) 22 % (24-48) Monocytes (%) (Auto) 10 % (0-9) 10 % (0-9) Eosinophils (%) (Auto) 1 % (0-3) 1 % (0-3) Basophils (%) (Auto) 1 % (0-3) 0 % (0-3) Neutrophils # (Auto) 3.1 x10^3uL (1.8-7.7) 5.6 x10^3uL (1.8-7.7) Lymphocytes # (Auto) 2.5 x10^3/uL (1.0-4.8) 1.8 x10^3/uL (1.0-4.8) Monocytes # (Auto) 0.6 x10^3/uL (0.0-1.1) 0.8 x10^3/uL (0.0-1.1) Eosinophils # (Auto) 0.1 x10^3/uL (0.0-0.7) 0.0 x10^3/uL (0.0-0.7) Basophils # (Auto) 0.0 x10^3/uL (0.0-0.2) 0.0 x10^3/uL (0.0-0.2) Sodium Level 135 mmol/L (136-145) 135 mmol/L (136-145) Potassium Level 3.8 mmol/L (3.5-5.1) 3.8 mmol/L (3.5-5.1) Chloride Level 98 mmol/L (98-107) 98 mmol/L (98-107) Carbon Dioxide Level 29 mmol/L (21-32) 26 mmol/L (21-32) Anion Gap 8 (6-14) 11 (6-14) Blood Urea Nitrogen 12 mg/dL (8-26) 17 mg/dL (8-26) Creatinine 1.1 mg/dL (0.7-1.3) 1.3 mg/dL (0.7-1.3) Estimated GFR (Cockcroft-Gault) 87.2 71.9 BUN/Creatinine Ratio 11 (6-20) Glucose Level 95 mg/dL (70-99) 114 mg/dL (70-99) Calcium Level 9.4 mg/dL (8.5-10.1) 8.7 mg/dL (8.5-10.1) Magnesium Level 2.0 mg/dL (1.8-2.4) Total Bilirubin 0.3 mg/dL (0.2-1.0) Aspartate Amino Transf (AST/SGOT) 22 U/L (15-37) Alanine Aminotransferase (ALT/SGPT) 28 U/L (16-63) Alkaline Phosphatase 85 U/L (46-116) Troponin I Quantitative < 0.017 ng/mL (0.000-0.055) < 0.017 ng/mL (0.000-0.055) Total Protein 8.5 g/dL (6.4-8.2) Albumin 4.0 g/dL (3.4-5.0) Albumin/Globulin Ratio 0.9 (1.0-1.7) Triglycerides Level 256 mg/dL (0-150) Cholesterol Level 244 mg/dL (0-200) LDL Cholesterol, Calculated 151 mg/dL (0-100) VLDL Cholesterol, Calculated 51 mg/dL (0-40) Non-HDL Cholesterol Calculated 202 mg/dL (0-129) HDL Cholesterol 42 mg/dL (40-60) Cholesterol/HDL Ratio 5.8 Laboratory Tests Test 02/18/19 12:47 02/18/19 12:57 02/19/19 03:30 02/19/19 03:35 Urine Collection Type Unknown Urine Color Yellow Urine Clarity Clear Urine pH 6.0 Urine Specific [place] 1.020 Urine Protein Negative mg/dL (NEG-TRACE) Urine Glucose (UA) Negative mg/dL (NEG) Urine Ketones (Stick) Negative mg/dL (NEG) Urine Blood Negative (NEG) Urine Nitrite Negative (NEG) Urine Bilirubin Negative (NEG) Urine Urobilinogen Dipstick 0.2 mg/dL (0.2 mg/dL) Urine Leukocyte Esterase Negative (NEG) Urine RBC 0 /HPF (0-2) Urine WBC 1-4 /HPF (0-4) Urine Squamous Epithelial Cells Few /LPF Urine Bacteria Few /HPF (0-FEW) Urine Mucus Mod /LPF White Blood Count 6.4 x10^3/uL (4.0-11.0) 8.2 x10^3/uL (4.0-11.0) Red Blood Count 4.45 x10^6/uL (4.30-5.70) 4.08 x10^6/uL (4.30-5.70) Hemoglobin 14.0 g/dL (13.0-17.5) 12.7 g/dL (13.0-17.5) Hematocrit 41.6 % (39.0-53.0) 38.1 % (39.0-53.0) Mean Corpuscular Volume 94 fL (79-100) 93 fL (79-100) Mean Corpuscular Hemoglobin 31 pg (25-35) 31 pg (25-35) Mean Corpuscular Hemoglobin Concent 34 g/dL (31-37) 33 g/dL (31-37) Red Cell Distribution Width 15.0 % (11.5-14.5) 14.8 % (11.5-14.5) Platelet Count 265 x10^3/uL (140-400) 245 x10^3/uL (140-400) Neutrophils (%) (Auto) 49 % (31-73) 68 % (31-73) Lymphocytes (%) (Auto) 40 % (24-48) 22 % (24-48) Monocytes (%) (Auto) 10 % (0-9) 10 % (0-9) Eosinophils (%) (Auto) 1 % (0-3) 1 % (0-3) Basophils (%) (Auto) 1 % (0-3) 0 % (0-3) Neutrophils # (Auto) 3.1 x10^3uL (1.8-7.7) 5.6 x10^3uL (1.8-7.7) Lymphocytes # (Auto) 2.5 x10^3/uL (1.0-4.8) 1.8 x10^3/uL (1.0-4.8) Monocytes # (Auto) 0.6 x10^3/uL (0.0-1.1) 0.8 x10^3/uL (0.0-1.1) Eosinophils # (Auto) 0.1 x10^3/uL (0.0-0.7) 0.0 x10^3/uL (0.0-0.7) Basophils # (Auto) 0.0 x10^3/uL (0.0-0.2) 0.0 x10^3/uL (0.0-0.2) Sodium Level 135 mmol/L (136-145) 135 mmol/L (136-145) Potassium Level 3.8 mmol/L (3.5-5.1) 3.8 mmol/L (3.5-5.1) Chloride Level 98 mmol/L (98-107) 98 mmol/L (98-107) Carbon Dioxide Level 29 mmol/L (21-32) 26 mmol/L (21-32) Anion Gap 8 (6-14) 11 (6-14) Blood Urea Nitrogen 12 mg/dL (8-26) 17 mg/dL (8-26) Creatinine 1.1 mg/dL (0.7-1.3) 1.3 mg/dL (0.7-1.3) Estimated GFR (Cockcroft-Gault) 87.2 71.9 BUN/Creatinine Ratio 11 (6-20) Glucose Level 95 mg/dL (70-99) 114 mg/dL (70-99) Calcium Level 9.4 mg/dL (8.5-10.1) 8.7 mg/dL (8.5-10.1) Magnesium Level 2.0 mg/dL (1.8-2.4) Total Bilirubin 0.3 mg/dL (0.2-1.0) Aspartate Amino Transf (AST/SGOT) 22 U/L (15-37) Alanine Aminotransferase (ALT/SGPT) 28 U/L (16-63) Alkaline Phosphatase 85 U/L (46-116) Troponin I Quantitative < 0.017 ng/mL (0.000-0.055) < 0.017 ng/mL (0.000-0.055) Total Protein 8.5 g/dL (6.4-8.2) Albumin 4.0 g/dL (3.4-5.0) Albumin/Globulin Ratio 0.9 (1.0-1.7) Triglycerides Level 256 mg/dL (0-150) Cholesterol Level 244 mg/dL (0-200) LDL Cholesterol, Calculated 151 mg/dL (0-100) VLDL Cholesterol, Calculated 51 mg/dL (0-40) Non-HDL Cholesterol Calculated 202 mg/dL (0-129) HDL Cholesterol 42 mg/dL (40-60) Cholesterol/HDL Ratio 5.8 Brief Hospital Course Mr. Monique is a 48 old -[place] male who smokes 1 tobacco a day, comes in because of pleuritic chest pain but this is from incessant coughing. Chest x- ray shows right 3 cm lung mass and this was verified by CAT scan. I did provided copies of the CAT scan. I do think he needs a tissue biopsy hence I have ordered IR. Patient has been nothing by mouth now but-did eat breakfast earlier today. Pulmonology also consulted but yet to see Cardiology consulted by colleague because of pleuritic chest pain but this is most likely from coughing Echocardiogram ordered at that is okay and post lung biopsy and doing well postprocedure he can go home and follow-up with biopsy results as outpatient Rx on chart including Robitussin with codeine, pro air. 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) Disposition/Orders: D/C to Home Scheduled Guaifenesin/Codeine Phosphate (Codeine-Guaifen 10-100 mg/5 ml) 120 Ml Liquid, 120 ML PO QID for pleuritic cp coughing for 10 Days Prescribed by: AP CORCORAN on 02/19/19 1215 Scheduled PRN Albuterol Sulfate (Albuterol Sulfate Neb Soln) 2.5 Mg/3 Ml Vial.neb, 1 VIAL NEB PRN QID PRN for SHORTNESS OF BREATH, #50 (Reported) Entered as Reported by: MARYELLEN PICKARD RN on 02/18/191841 Last Taken: UNKNOWN on Unknown Date & Time Last Action: New Order on 02/18/191841 by MARYELLEN PICKARD RN Albuterol Sulfate (Proair Hfa Inhaler) 8.5 Gm Hfa.aer.ad, 1 PUFF INH PRN Q6HRS PRN for SHORTNESS OF BREATH for 30 Days, Ref 0 Prescribed by: AP CORCORAN on 02/19/19 1216 [Nicotine 21MG] 1 PATCH PATCH, 1 PATCH TD PRN DAILY PRN for SMOKING CESSATION MDD 1, #10 Prescribed by: AP CORCORAN on 02/19/19 1215 AP CORCORAN MD February 19, 2019 12:19
[2019-02-19 13:52] LABS: PROTHROMBIN TIME PATIENT 12.7 SEC (11.7-14.0)
--- NOTE | 2019-02-19 14:24 | PDOC ---
PULMONARY PROGRESS NOTES Vitals Vital Signs Date Time Temp Pulse Resp B/P (MAP) Pulse Ox O2 Delivery O2 Flow Rate FiO2 02/19/19 12:44 18 96 Room Air 02/19/19 11:00 98.3 67 126/75 (92) 98.3 Labs Laboratory Tests Test 02/18/19 12:47 02/18/19 12:57 02/19/19 03:30 02/19/19 03:35 Urine Collection Type Unknown Urine Color Yellow Urine Clarity Clear Urine pH 6.0 Urine Specific [place] 1.020 Urine Protein Negative mg/dL (NEG-TRACE) Urine Glucose (UA) Negative mg/dL (NEG) Urine Ketones (Stick) Negative mg/dL (NEG) Urine Blood Negative (NEG) Urine Nitrite Negative (NEG) Urine Bilirubin Negative (NEG) Urine Urobilinogen Dipstick 0.2 mg/dL (0.2 mg/dL) Urine Leukocyte Esterase Negative (NEG) Urine RBC 0 /HPF (0-2) Urine WBC 1-4 /HPF (0-4) Urine Squamous Epithelial Cells Few /LPF Urine Bacteria Few /HPF (0-FEW) Urine Mucus Mod /LPF White Blood Count 6.4 x10^3/uL (4.0-11.0) 8.2 x10^3/uL (4.0-11.0) Red Blood Count 4.45 x10^6/uL (4.30-5.70) 4.08 x10^6/uL (4.30-5.70) Hemoglobin 14.0 g/dL (13.0-17.5) 12.7 g/dL (13.0-17.5) Hematocrit 41.6 % (39.0-53.0) 38.1 % (39.0-53.0) Mean Corpuscular Volume 94 fL (79-100) 93 fL (79-100) Mean Corpuscular Hemoglobin 31 pg (25-35) 31 pg (25-35) Mean Corpuscular Hemoglobin Concent 34 g/dL (31-37) 33 g/dL (31-37) Red Cell Distribution Width 15.0 % (11.5-14.5) 14.8 % (11.5-14.5) Platelet Count 265 x10^3/uL (140-400) 245 x10^3/uL (140-400) Neutrophils (%) (Auto) 49 % (31-73) 68 % (31-73) Lymphocytes (%) (Auto) 40 % (24-48) 22 % (24-48) Monocytes (%) (Auto) 10 % (0-9) 10 % (0-9) Eosinophils (%) (Auto) 1 % (0-3) 1 % (0-3) Basophils (%) (Auto) 1 % (0-3) 0 % (0-3) Neutrophils # (Auto) 3.1 x10^3uL (1.8-7.7) 5.6 x10^3uL (1.8-7.7) Lymphocytes # (Auto) 2.5 x10^3/uL (1.0-4.8) 1.8 x10^3/uL (1.0-4.8) Monocytes # (Auto) 0.6 x10^3/uL (0.0-1.1) 0.8 x10^3/uL (0.0-1.1) Eosinophils # (Auto) 0.1 x10^3/uL (0.0-0.7) 0.0 x10^3/uL (0.0-0.7) Basophils # (Auto) 0.0 x10^3/uL (0.0-0.2) 0.0 x10^3/uL (0.0-0.2) Sodium Level 135 mmol/L (136-145) 135 mmol/L (136-145) Potassium Level 3.8 mmol/L (3.5-5.1) 3.8 mmol/L (3.5-5.1) Chloride Level 98 mmol/L (98-107) 98 mmol/L (98-107) Carbon Dioxide Level 29 mmol/L (21-32) 26 mmol/L (21-32) Anion Gap 8 (6-14) 11 (6-14) Blood Urea Nitrogen 12 mg/dL (8-26) 17 mg/dL (8-26) Creatinine 1.1 mg/dL (0.7-1.3) 1.3 mg/dL (0.7-1.3) Estimated GFR (Cockcroft-Gault) 87.2 71.9 BUN/Creatinine Ratio 11 (6-20) Glucose Level 95 mg/dL (70-99) 114 mg/dL (70-99) Calcium Level 9.4 mg/dL (8.5-10.1) 8.7 mg/dL (8.5-10.1) Magnesium Level 2.0 mg/dL (1.8-2.4) Total Bilirubin 0.3 mg/dL (0.2-1.0) Aspartate Amino Transf (AST/SGOT) 22 U/L (15-37) Alanine Aminotransferase (ALT/SGPT) 28 U/L (16-63) Alkaline Phosphatase 85 U/L (46-116) Troponin I Quantitative < 0.017 ng/mL (0.000-0.055) < 0.017 ng/mL (0.000-0.055) Total Protein 8.5 g/dL (6.4-8.2) Albumin 4.0 g/dL (3.4-5.0) Albumin/Globulin Ratio 0.9 (1.0-1.7) Triglycerides Level 256 mg/dL (0-150) Cholesterol Level 244 mg/dL (0-200) LDL Cholesterol, Calculated 151 mg/dL (0-100) VLDL Cholesterol, Calculated 51 mg/dL (0-40) Non-HDL Cholesterol Calculated 202 mg/dL (0-129) HDL Cholesterol 42 mg/dL (40-60) Cholesterol/HDL Ratio 5.8 Test 02/19/19 13:35 Prothrombin Time 12.7 SEC (11.7-14.0) Prothromb Time International Ratio 1.0 (0.8-1.1) Activated Partial Thromboplast Time 30 SEC (24-38) Laboratory Tests Test 02/19/19 03:30 02/19/19 03:35 02/19/19 13:35 Sodium Level 135 mmol/L (136-145) Potassium Level 3.8 mmol/L (3.5-5.1) Chloride Level 98 mmol/L (98-107) Carbon Dioxide Level 26 mmol/L (21-32) Anion Gap 11 (6-14) Blood Urea Nitrogen 17 mg/dL (8-26) Creatinine 1.3 mg/dL (0.7-1.3) Estimated GFR (Cockcroft-Gault) 71.9 Glucose Level 114 mg/dL (70-99) Calcium Level 8.7 mg/dL (8.5-10.1) White Blood Count 8.2 x10^3/uL (4.0-11.0) Red Blood Count 4.08 x10^6/uL (4.30-5.70) Hemoglobin 12.7 g/dL (13.0-17.5) Hematocrit 38.1 % (39.0-53.0) Mean Corpuscular Volume 93 fL (79-100) Mean Corpuscular Hemoglobin 31 pg (25-35) Mean Corpuscular Hemoglobin Concent 33 g/dL (31-37) Red Cell Distribution Width 14.8 % (11.5-14.5) Platelet Count 245 x10^3/uL (140-400) Neutrophils (%) (Auto) 68 % (31-73) Lymphocytes (%) (Auto) 22 % (24-48) Monocytes (%) (Auto) 10 % (0-9) Eosinophils (%) (Auto) 1 % (0-3) Basophils (%) (Auto) 0 % (0-3) Neutrophils # (Auto) 5.6 x10^3uL (1.8-7.7) Lymphocytes # (Auto) 1.8 x10^3/uL (1.0-4.8) Monocytes # (Auto) 0.8 x10^3/uL (0.0-1.1) Eosinophils # (Auto) 0.0 x10^3/uL (0.0-0.7) Basophils # (Auto) 0.0 x10^3/uL (0.0-0.2) Troponin I Quantitative < 0.017 ng/mL (0.000-0.055) Triglycerides Level 256 mg/dL (0-150) Cholesterol Level 244 mg/dL (0-200) LDL Cholesterol, Calculated 151 mg/dL (0-100) VLDL Cholesterol, Calculated 51 mg/dL (0-40) Non-HDL Cholesterol Calculated 202 mg/dL (0-129) HDL Cholesterol 42 mg/dL (40-60) Cholesterol/HDL Ratio 5.8 Prothrombin Time 12.7 SEC (11.7-14.0) Prothromb Time International Ratio 1.0 (0.8-1.1) Activated Partial Thromboplast Time 30 SEC (24-38) Medications Active Scripts Medications Dose Route/Sig Max Daily Dose Days Date Category Proair Hfa Inhaler (Albuterol Sulfate) 8.5 Gm Hfa.aer.ad 1 Puff INH PRN Q6HRS PRN 30 02/19/19 Rx Codeine-Guaifen 10-100 mg/5 ml (Guaifenesin/Codeine Phosphate) 120 Ml Liquid 120 Ml PO QID 10 02/19/19 Rx [Nicotine 21MG] 1 PATCH Patch 1 Patch TD PRN DAILY PRN MDD 1 02/19/19 Rx Albuterol Sulfate Neb Soln (Albuterol Sulfate) 2.5 Mg/3 Ml Vial.neb 1 Vial NEB PRN QID PRN 02/18/19 Reported Impression . DICTATED D/C HOME FOLLOW UP IN MY OFFICE FNA OUT PT RX FOR FLOVENT AND PRED LENORA SHAH MD February 19, 2019 14:24
[2019-02-19 15:00] VITALS: BP 126/79
--- NOTE | 2019-02-19 17:26 | NUR ---
Discharge Note: BAYLEE WONG [facility] Discharge instructions and discharge home medications reviewed with patient and a copy given. All questions have been answered and understanding verbalized. The following instructions and handouts were given: prescriptions for provent, prednisone, codeine-guiafenesin, nicotine patch, proair inhaler Asthma easy to read handout FF up at Dr. Brooks's office, call office to schedule lung mass biopsy. FF up with PCP. Discontinued lines and drains: peripheral IV intact, patient tolerated removal, no complications noted. Patient discharged to home with self care,was ambulatory, and left the unit at 1725.
--- NOTE | 2019-02-20 02:33 | CONS ---
DATE OF CONSULTATION: 02/19/2019 ATTENDING PHYSICIAN: Farrah Vizcaino MD. REASON FOR CONSULTATION: The patient seen in pulmonary consultation at the request of Dr. Vizcaino for abnormal CT chest. HISTORY OF PRESENT ILLNESS: The patient is a 48-year-old that had asthma as a young adult prior to smoking, presented with increasing shortness of breath, some left-sided chest discomfort. He was evaluated in the Emergency Room, had a CT chest which revealed a 3 cm right upper lobe spiculated mass. There were also calcified lymph nodes in the mediastinal region. There was also a medial right lower lobe pulmonary nodule that had some central calcification. The patient denies fever or chills. He has a cough, mostly nonproductive, normally uses albuterol p.r.n. He has not been hospitalized in the past with COPD or pneumonia. PAST MEDICAL HISTORY: Anxiety, arthritis, asthma, tobacco dependence, COPD. PAST SURGICAL HISTORY: He has had previous rotator repair, hernia repair. SOCIAL HISTORY: Occasional use of alcohol, continues to smoke. REVIEW OF SYSTEMS: As indicated above, otherwise, a 10-point system was reviewed and negative. PHYSICAL EXAMINATION: GENERAL: The patient appeared to be his stated age. VITAL SIGNS: He was afebrile. O2 saturation was greater than 92%. HEENT: Eyes, the sclerae were nonicteric. NECK: Jugular venous distention was not elevated. No lymphadenopathy. CHEST: Full expansion. LUNGS: Adequate airway flow with no wheezes. CARDIOVASCULAR: Regular rate and rhythm with S1, S2, no S3. ABDOMEN: Soft, nontender, nondistended. EXTREMITIES: No clubbing, cyanosis or edema. NEUROLOGIC: The patient was awake, alert, following commands. A detailed neuro exam was not performed. LABORATORY DATA: Reviewed. Electrolytes were noted. Sodium was slightly low. IMPRESSION: 1. Abnormal CT chest revealing a 3 cm spiculated mass in the right upper lobe. 2. Acute exacerbation of chronic obstructive pulmonary disease. 3. Tobacco dependent. 4. History of asthma as a young adult. 5. Calcified mediastinal lymph node. 6. Calcified right lower lobe pulmonary nodule. PLAN: 1. The patient is to discharge home today on prednisone, Flovent and albuterol along with antibiotics. 2. My office will set up outpatient FNA with Interventional radiologist. 3. The patient instructed to call my office if no one calls him within the next 7 days. I also informed the patient and stressed the importance of followup despite the fact that he currently does not have insurance coverage. I stressed the importance of followup to rule out the possibility of early bronchogenic carcinoma. If he does not follow up, eventually he will become symptomatic with hemoptysis and at that point it may be too late to treat him. LENORA SHAH MD DR: JASWINDER/velvet JOB#: [id number] / [id number]
== END 2019-02-19 17:21 | disposition home or self-care (01) | DRG 191 ==
LOC: ER 11:30 → ED HOLD 15:30 → 6 SOUTH 18:00
PROVIDERS: ADMIT Family Medicine; ATTEND Family Medicine
DX: J44.1 Chronic obstructive pulmonary disease with (acute) exacerbation (principal); K62.5 Hemorrhage of anus and rectum; F17.210 Nicotine dependence, cigarettes, uncomplicated; N63.12 Unspecified lump in the right breast, upper inner quadrant; R91.1 Solitary pulmonary nodule; M54.30 Sciatica, unspecified side; M19.90 Unspecified osteoarthritis, unspecified site; F41.9 Anxiety disorder, unspecified; E78.5 Hyperlipidemia, unspecified; Z91.14 Patient's other noncompliance with medication regimen; Z82.49 Family history of ischemic heart disease and other diseases of the circulatory system
CPT/HCPCS: 36415; 71046; 71260; 80048; 80053; 80061; 81001; 83735; 84484; 85025; 85610; 85730; 93005; 93306; 94640; 94760; 96360; J1170; J7030; J7512; J7620; 99285-25

== ENCOUNTER 2019-07-22 07:08 | Outpatient (CLI) | payer MEDICAID, OTHER ==
[~2019-07-22] VITALS: Ht 182.9 cm; Wt 99.8 kg
[2019-07-22] VITALS (13 sets, daily range): BP systolic 121–147; BP diastolic 70–86
[~2019-07-22 07:08] MED LIST: ALBU2.5V5 NEB; ALBU2.5V8 INH; GUAI120L35 PO; Nicotine 21MG TD
[2019-07-22 07:39] LABS: BASO % 1 % (0-3); EOS # 0.1 x10^3/uL (0.0-0.7); EOS % 1 % (0-3); HEMATOCRIT 41.3 % (39.0-53.0); HEMOGLOBIN 13.8 g/dL (13.0-17.5); LYMPH % 46 % (24-48); MEAN CORPUSCULAR HEMOGLOBIN 31 pg (25-35); MEAN CORPUSCULAR HGB CONC 33 g/dL (31-37); MEAN CORPUSCULAR VOLUME 93 fL (79-100); MONO # 0.7 x10^3/uL (0.0-1.1); MONO % 9 % (0-9); NEUT # 3.8 x10^3/uL (1.8-7.7); NEUT % 44 % (31-73); PLATELET COUNT 256 x10^3/uL (140-400); RED BLOOD COUNT 4.44 x10^6/uL (4.30-5.70); RED CELL DISTRIBUTION WIDTH 13.9 % (11.5-14.5); WHITE BLOOD COUNT 8.6 x10^3/uL (4.0-11.0)
[2019-07-22 07:48] LABS: PROTHROMBIN TIME PATIENT 13.1 SEC (11.7-14.0)
[2019-07-22] MEDS ORDERED: LIDOCAINE WITH 8.4% SOD BICARB 3 ML DISP.SYRIN. IJ ONE (08:00)
[2019-07-22] MEDS ORDERED: MIDAZOLAM HCL/PF 2 MG/2 ML VIAL. IV ONE (08:00)
[2019-07-22] MEDS ORDERED: fentaNYL PF VIAL 100 MCG/2 ML VIAL IV ONE (08:00)
[2019-07-22] MEDS ORDERED: MIDAZOLAM HCL/PF 2 MG/2 ML VIAL. ONE (08:04)
[2019-07-22] MEDS ORDERED: fentaNYL PF VIAL 100 MCG/2 ML VIAL ONE (08:05)
[2019-07-22] MEDS ORDERED: LIDOCAINE WITH 8.4% SOD BICARB 3 ML DISP.SYRIN. ONE (08:24)
--- NOTE | 2019-07-22 12:10 | NUR ---
Discharge Note: YASMIN WONG I Discharge instructions and discharge home medications reviewed with Patient and a copy given. All questions have been answered and understanding verbalized. The following instructions and handouts were given: Lung Biopsy, Moderate Sedation Discontinued lines and drains: Peripheral IV intact. Patient discharged to Home or Self Care with Friend via Wheelchair
--- NOTE | 2019-07-22 16:35 | RAD ---
CT-guided, right upper lobe mass biopsy 07/22/2019 2:30 PM Indication: Right upper lobe nodule Discussion: The risks and benefits of the procedure, including but not limited to, bleeding and infection were discussed patient. Informed consent was obtained. The patient was brought to the CT scanner and placed in the supine position. A timeout procedure was performed. CT imaging of the chest redemonstrates a right upper lobe nodule. This was targeted for biopsy. The overlying soft tissues were prepped and draped using maximum sterile barrier technique. 1% lidocaine without epinephrine was administered for local anesthesia. Under intermittent CT guidance, an 17-gauge needle was advanced into the nodule. Multiple core biopsies were obtained and placed in formalin. The needle was removed and manual pressure held to achieve hemostasis. Repeat imaging demonstrates minimal perilesional hemorrhage without evidence of pneumothorax or other complication. The procedure was performed under conscious sedation including continuous cardiopulmonary monitoring via dedicated sedation nurse. Sedation time: 30 minutes Impression: CT-guided biopsy, right upper lobe nodule PQRS Compliance Statement: One or more of the following individualized dose reduction techniques were utilized for this examination: 1. Automated exposure control 2. Adjustment of the mA and/or kV according to patient size 3. Use of iterative reconstruction technique
--- NOTE | 2019-07-22 16:48 | RAD ---
CHEST AP ONLY 07/22/2019 11:00 AM INDICATION: Post right lung biopsy COMPARISON: 02/18/2019 TECHNIQUE: Portable frontal view of the chest is provided. FINDINGS: The cardiomediastinal silhouette is similar in appearance. Stable appearance of the right upper lobe lung mass measuring at least 2.5 cm. There are no significant pleural effusions. There is no pulmonary vascular congestion. No pneumothorax. IMPRESSION: Status post biopsy of right upper lobe lung mass without evidence for pneumothorax. Electronically signed by: Lucia Osborn MD (07/22/2019 4:46 PM) [facility]
--- NOTE | 2019-07-23 18:06 | PATHOLOGY ---
[facility] Accession Number: [id number] . 01 Material submitted: . lung - RIGHT LUNG MASS. Modifiers: right . 01 Clinical history: . Right lung mass . 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 See comment. (JPM:cnc specialist; 07/23/2019) [facility] 07/23/2019 1441 Local . 02 Comment: Sections of the right lung CT-guided needle biopsy reveal segments of lung tissue. There are focal areas of necrosis which are bordered by histiocytes and lung tissue showing interstitial scarring and chronic inflammation. There is nuclear debris within the areas of necrosis. Properly controlled stains for acid fast bacilli and fungi are obtained and yield the following results: . AFB stain (A1): Negative for acid-fast bacilli. GMS stain (A1): Negative for yeast/fungal organisms. . The morphologic and special stains are supportive of the diagnosis of necrotizing granuloma with focal interstitial scarring and chronic inflammation. There is no evidence of malignancy. . (JPM:cnc specialist; 07/23/2019) . Special stains performed: AFB stain and GMS stain for yeast/fungi on A1. . 02 Electronically signed: . Horacio Fitzpatrick MD, Pathologist NPI- [id number] . 01 Gross description: . The specimen is received in formalin, labeled "Lalito Monique, right lung BX", are three needle cores and its fragments measuring 0.3 cm, 0.8 cm and 1.0 cm in length and up to 0.1 cm in diameter. The specimen is entirely submitted in A1. (SWS; 07/22/2019) [facility] 07/22/2019 1720 Local . 02 Pathologist provided ICD-10: J84.10, J98.4 . 02 CPT . 607563, 997040, 922319 Specimen Comment: A courtesy copy of this report has been sent to Specimen Comment: [phone], . Specimen Comment: Report sent to / DR SHAH Performed at: 01 [facility] [address], [place] [id number] MD Alfie Ann MD Phone: [phone] Performed at: [address] [facility] [address] [place], [place] [id number] MD Horacio Fitzpatrick MD Phone: [phone]
== END 2019-07-22 12:10 | disposition home or self-care (01) ==
LOC: INTRAD 07:08
PROVIDERS: ATTEND Internal Medicine Pulmonary Disease
DX: R91.8 Other nonspecific abnormal finding of lung field (principal); J98.4 Other disorders of lung; J84.89 Other specified interstitial pulmonary diseases; R79.89 Other specified abnormal findings of blood chemistry; Z88.8 Allergy status to other drugs, medicaments and biological substances
CPT/HCPCS: 32405; 36415; 71045; 77012; 85025; 85610; 88305; 88312; J2250; J3010; 99152; 99153

== ENCOUNTER 2019-10-01 20:29 | Emergency (ER) | payer OTHER ==
[~2019-10-01] VITALS: Ht 182.9 cm; Wt 104.3 kg
[2019-10-01 20:43] VITALS: BP 125/59
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
[2019-10-01] MEDS ORDERED: CYCL10TA2 PO (22:05)
[2019-10-01] MEDS ORDERED: DICL50TA4 PO (22:05)
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
== END 2019-10-01 22:20 | disposition home or self-care (01) ==
LOC: ER 20:29
DX: S16.1XXA Strain of muscle, fascia and tendon at neck level, initial encounter (principal); M25.512 Pain in left shoulder; J45.909 Unspecified asthma, uncomplicated; Z88.8 Allergy status to other drugs, medicaments and biological substances; V49.88XA Car occupant (driver) (passenger) injured in other specified transport accidents, initial encounter; Y93.89 Activity, other specified; Y92.488 Other paved roadways as the place of occurrence of the external cause; Y99.8 Other external cause status
CPT/HCPCS: 72125; 73030; 99284-25

== ENCOUNTER 2020-02-04 08:09 | Emergency (ER) | payer OTHER ==
[~2020-02-04] VITALS: Ht 182.9 cm; Wt 100.0 kg
[~2020-02-04 08:09] MED LIST changes: +CYCL10TA2 PO; +DICL50TA4 PO
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
[2020-02-04 10:19] LABS: CALCIUM 9.2 mg/dL (8.5-10.1); CREATININE 1.1 mg/dL (0.7-1.3); GFR 86.8; POTASSIUM 4.2 mmol/L (3.5-5.1)
[2020-02-04 10:25] LABS: ALBUMIN 3.5 g/dL (3.4-5.0); ALBUMIN/GLOBULIN RATIO 0.9 (1.0-1.7); MAGNESIUM 1.9 mg/dL (1.8-2.4); TOTAL BILIRUBIN 0.2 mg/dL (0.2-1.0); TOTAL PROTEIN 7.6 g/dL (6.4-8.2)
[2020-02-04 10:39] LABS: PROTHROMBIN TIME PATIENT 12.7 SEC (11.7-14.0)
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
[2020-02-04 10:50] LABS: BASO % 1 % (0-3); EOS # 0.1 x10^3/uL (0.0-0.7); EOS % 1 % (0-3); HEMOGLOBIN 13.2 g/dL (13.0-17.5); LYMPH # 2.5 x10^3/uL (1.0-4.8); LYMPH % 37 % (24-48); MEAN CORPUSCULAR HEMOGLOBIN 31 pg (25-35); MEAN CORPUSCULAR HGB CONC 33 g/dL (31-37); MEAN CORPUSCULAR VOLUME 93 fL (79-100); MONO # 0.8 x10^3/uL (0.0-1.1); MONO % 11 % (0-9); NEUT # 3.3 x10^3/uL (1.8-7.7); NEUT % 50 % (31-73); PLATELET COUNT 282 x10^3/uL (140-400); RED BLOOD COUNT 4.29 x10^6/uL (4.30-5.70); RED CELL DISTRIBUTION WIDTH 13.5 % (11.5-14.5); WHITE BLOOD COUNT 6.7 x10^3/uL (4.0-11.0)
--- NOTE | 2020-02-04 11:02 | EKG ---
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
[2020-02-04] MEDS ORDERED: IOHEXOL 350 MG/ML 100 ML VIAL. IV ONE (11:15)
--- NOTE | 2020-02-04 11:56 | RAD ---
CT ANGIOGRAPHY CHEST Indication: Chest pain with shortness of breath. History of lung mass. . Technique: After intravenous contrast administration, CT imaging was performed of the chest. MIP reconstructions were obtained. Exposure: One or more of the following individualized dose reduction techniques were utilized for this examination: 1. Automated exposure control 2. Adjustment of the mA and/or kV according to patient size 3. Use of iterative reconstruction technique. Comparison: Standard CT chest 02/18/2019. FINDINGS: Suboptimal evaluation of segmental and peripheral pulmonary artery branches due to limited enhancement. No definite pulmonary embolism is seen. Limited enhancement of the aorta due to protocol. No evidence of aortic aneurysm. No pericardial effusion. No evidence of pleural effusion. Visualized thyroid appears grossly symmetric. Left axilla obscured by artifact from contrast and flow. No evidence of right axillary, mediastinal or hilar pathologic lymph node enlargement. Pretracheal michelle calcification is again identified and appears similar. Right upper lobe pulmonary mass measures 2.4 x 2.3 x 3.6 cm, which is overall similar to the prior similar slices. The inferior aspect does appear slightly more bulky, however, on the sagittal reconstructions. However, if real, this is only a slight change since February 2019. Tiny nodule is now identified in the right upper lobe, just posterior to this larger mass, series 3, image 42, measuring 4 mm, not clearly identified previously. No new large mass is seen. No evidence of acute infiltrate. No evidence of pneumothorax. Pulmonary blebs and bullae are again identified. Trachea and mainstem bronchi are patent. Mass in the right lower lobe medially with a central calcification is again seen, and appears overall similar. Vertebral body height is intact as is alignment. No evidence of aggressive bone destruction. Partially visualized low-density lesion in the upper pole of the left kidney is also partially seen on the previous exam and measures 16 Hounsfield units, may represent a cyst. IMPRESSION: 1. No evidence of definite pulmonary embolus, but limited evaluation of peripheral and segmental branches due to suboptimal enhancement. 2. Right upper lobe pulmonary mass is again seen. This appears slightly more bulky at its inferior aspect since prior study on sagittal plane, but overall measurements are roughly similar to study of about 1 ago. Apparently this has been biopsied, correlate with results with further workup as indicated. Note there is a new small 4 mm pulmonary nodule in the adjacent right upper lobe, therefore follow-up CT chest in about 6 months is recommended. 3. Smaller mass in the right lower lobe medially with central calcification, appears similar to prior study. Electronically signed by: Brandon Simmons MD (02/04/2020 11:52 AM) [facility]
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
[2020-02-04 12:15] LABS: D-DIMER < 0.27 ug/mlFEU (0.00-0.50)
[2020-02-04 12:37] LABS: CHOLESTEROL/HDL RATIO 7.7
--- NOTE | 2020-02-04 14:52 | CARD ---
MR#: [id number] Date of Study: 02/04/2020 Ordering Physician: BRIAN CHAPPELL, Referring Physician: BRIAN CHAPPELL, Tech: Re Mendoza APPROVED REPORT EXAM: Two-dimensional and M-mode echocardiogram with Doppler and color Doppler. Other Information Quality : AverageHR: 64bpm INDICATION Arrhythmia Dyspnea Chest Pain Right Bundle branch block RISK FACTORS Smoking 2D DIMENSIONS Left Atrium(2D)3.0 (1.6-4.0cm)IVSd1.0 (0.7-1.1cm) Aortic Root(2D)3.0 (2.0-3.7cm)LVDd4.6 (3.9-5.9cm) LVOT Diameter2.0 (1.8-2.4cm)PWd1.1 (0.7-1.1cm) LVDs3.8 (2.5-4.0cm) Tricuspid Valve RAP [id number] Peak Gr.28mmHg [id number] LEFT VENTRICLE The left ventricle is normal size. There is normal left ventricular wall thickness. The left ventricu lar systolic function is normal and the ejection fraction is within normal range. The Ejection Fracti on is 50-55%. Septal motion consistent with conduction abnormality. RIGHT VENTRICLE The right ventricle is borderline dilated. There is normal right ventricular wall thickness. The righ t ventricular systolic function is normal. ATRIA The left atrium size is normal. The right atrium is mildly dilated. The interatrial septum is intact with no evidence for an atrial septal defect or patent foramen ovale as noted on 2-D or Doppler imagi ng. AORTIC VALVE The aortic valve is normal in structure and function. Doppler and Color Flow revealed no significant aortic regurgitation. There is no significant aortic valvular stenosis. MITRAL VALVE The mitral valve is normal in structure and function. There is no evidence of mitral valve prolapse. There is no mitral valve stenosis. Doppler and Color-flow revealed trace mitral regurgitation. TRICUSPID VALVE The tricuspid valve is normal in structure and function. Doppler and Color Flow revealed trace tricus pid regurgitation with an estimated PAP of 31 mmHg. There is no tricuspid valve stenosis. PULMONIC VALVE The pulmonic valve is not well visualized. Doppler and Color Flow revealed no pulmonic valvular regur gitation. GREAT VESSELS The aortic root is normal in size. The IVC is normal in size and collapses >50% with inspiration. PERICARDIAL EFFUSION There is no evidence of significant pericardial effusion. Critical Notification Critical Value: No <Conclusion> The left ventricle is normal size. The left ventricular systolic function is normal and the ejection fraction is within normal range. The Ejection Fraction is 50-55%. Doppler and Color Flow revealed no significant aortic regurgitation. There is no significant aortic valvular stenosis. Doppler and Color-flow revealed trace mitral regurgitation. Doppler and Color Flow revealed trace tricuspid regurgitation with an estimated PAP of 31 mmHg. Signed by : Kenneth Moss MD Electronically Approved : 02/04/2020 14:52:09
[2020-02-04 15:19] VITALS: BP 113/60
[2020-02-04] MEDS ORDERED: NAPR-683 PO (15:41)
[2020-02-04] MEDS ORDERED: ATORVASTATIN CALCIUM 20 MG TABLET PO SCH (21:00)
== END 2020-02-04 16:19 | disposition home or self-care (01) ==
LOC: ER 08:09
DX: R07.89 Other chest pain (principal); R91.8 Other nonspecific abnormal finding of lung field; R06.02 Shortness of breath; R42 Dizziness and giddiness; F41.9 Anxiety disorder, unspecified; M19.90 Unspecified osteoarthritis, unspecified site; J45.909 Unspecified asthma, uncomplicated; F17.200 Nicotine dependence, unspecified, uncomplicated; Z98.890 Other specified postprocedural states; Z88.8 Allergy status to other drugs, medicaments and biological substances
CPT/HCPCS: 36415; 71045; 71275; 80053; 80061; 82550; 83690; 83735; 83880; 84484; 85025; 85379; 85610; 85651; 93005; 93308; 93320; 93325; 99285; Q9967